=== PATIENT | male | born 1960 | race Caucasian/White ===

== ENCOUNTER 2017-04-29 20:35 | Inpatient (IN) | payer SELFPAY ==
[~2017-04-29] VITALS: Ht 172.7 cm; Wt 74.8 kg
[~2017-04-29 20:35] MED LIST: IBUPROFEN600 MG PO; NKM; NORCO 5-325 TA1 EACH ORAL
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
[2017-04-29 21:22] LABS: MEAN CORPUSCULAR HEMOGLOBIN 33.4 PG (27.0-31.0); MEAN CORPUSCULAR HGB CONC 34.2 G/DL (32.0-36.0); MEAN CORPUSCULAR VOLUME 98 FL (80-99); MEAN PLATELET VOLUME 5.7 FL (6.5-10.1); PLATELET COUNT 266 K/UL (150-450); RED BLOOD COUNT 4.17 M/UL (4.70-6.10); RED CELL DISTRIBUTION WIDTH 11.8 % (11.6-14.8); WHITE BLOOD COUNT 7.7 K/UL (4.8-10.8)
[2017-04-29 21:24] LABS: LYMPHOCYTES % (AUTO) 7.7 % (20.0-45.0); NEUTROPHILS % (AUTO) 89.3 % (45.0-75.0)
[2017-04-29 21:25] LABS: BASOPHILS % (AUTO) 0.4 % (0.0-2.0); MONOCYTES % (AUTO) 2.6 % (1.0-10.0)
[2017-04-29 21:51] LABS: TROPONIN I < 0.30 ng/mL (<=0.30)
[2017-04-29 21:54] LABS: ALANINE AMINOTRANSFERASE 20 U/L (3-41); ALBUMIN/GLOBULIN RATIO 4.8 (1.0-2.7); ANION GAP 14 (5-15); ASPARTATE AMINO TRANSFERASE 31 U/L (5-40); CALCIUM 9.2 mg/dL (8.6-10.2); CARBON DIOXIDE 25 mEQ/L (20-30); CHLORIDE 97 mEQ/L (98-107); GLOMERULAR FILTRATION RATE > 60 mL/min (>60); HEMOLYSIS 2; POTASSIUM 3.8 mEQ/L (3.4-4.9); SODIUM 136 mEQ/L (135-145)
[2017-04-29 22:00] VITALS: BP_SYST 132; BP_SYST 138; BP_SYST 139; BP_SYST 145; BP_DIAS 102; BP_DIAS 104; BP_DIAS 82; BP_DIAS 89
[2017-04-29 22:04] LABS: CKMB 2.9 ng/mL (< 6.7)
[2017-04-29] MEDS ORDERED: LORazepam Inj 2mg/ml 1ml IV ONE (22:15)
[2017-04-29] MEDS ORDERED: levETIRAcetam 500mg/NS100ml 100 ML IVPB ONE (22:15)
[2017-04-29 23:54] VITALS: BP 126/85
[2017-04-30] VITALS (7 sets, daily range): BP systolic 123–148; BP diastolic 77–89
[2017-04-30 01:08] LABS: APPEARANCE,URINE CLEAR; KETONES,URINE 3+ (NEGATIVE); LEUKOCYTE ESTERASE ,URINE NEGATIVE (NEGATIVE); NITRITE,URINE NEGATIVE (NEGATIVE); PH,URINE 6 (4.5-8.0); UROBILINOGEN,URINE NORMAL MG/DL (0.0-1.0)
[2017-04-30 01:10] LABS: PROTEIN,URINE NEGATIVE (NEGATIVE)
[2017-04-30] MEDS ORDERED: LORazepam Inj 2mg/ml 1ml IV PRN (07:00)
[2017-04-30] MEDS ORDERED: Morphine Sulfate 2mg/ml Inj IVP PRN (07:00)
[2017-04-30] MEDS ORDERED: Nitroglycerin Subl 0.4mg tab (Bottle Of 25) SL PRN (07:00)
[2017-04-30] MEDS ORDERED: DuoNeb 0.5-3(2.5)mg/3ml neb HHN PRN (07:00)
[2017-04-30] MEDS ORDERED: Miralax 17gm pkt ORAL PRN (07:00)
[2017-04-30] MEDS ORDERED: Mylanta II UD 30ml ORAL PRN (07:00)
--- NOTE | 2017-04-30 09:40 | Diagnostic Imaging Report ---
Indications: Technique: Spiral acquisitions obtained through the brain. Angled axial and coronal 5 x 5 mm slices were reconstructed. Total dose length product 1337 mGycm. CTDI vol(s) 7 to mGy. Dose reduction achieved using automated exposure control Comparison: None Findings: No acute hemorrhage or edema. No mass effect or midline shift. Normal size ventricles and extra-axial CSF spaces. Normal dodge-white differentiation. Intact calvarium. There is minimal ethmoid sinus disease. Impression: Minimal sinus disease Negative for acute intracranial bleed or mass effect This agrees with the preliminary interpretation provided overnight by [facility]erad[facility] service. The CT scanner at [facility] is accredited by the [employer] and the scans are performed using protocols designed to limit radiation exposure to as low as reasonably achievable to attain images of sufficient resolution adequate for diagnostic evaluation.
[2017-04-30] MEDS: Heparin 5000 units/ml inj SUBQ SCH ×2 (10:49→20:41)
--- NOTE | 2017-04-30 10:57 | Diagnostic Imaging Report ---
Indication: Shortness of breath Technique: One view of the chest Comparison: 07/07/2013 Findings: Lungs and pleural spaces are clear. Heart size is normal. No significant interim change Impression: No acute process This agrees with the preliminary interpretation provided by the emergency room physician
--- NOTE | 2017-04-30 12:43 | Neurology Progress Note ---
Objective Physical Exam Last Vital Signs Date Time Temp Pulse Resp B/P Pulse Ox O2 Delivery O2 Flow Rate FiO2 04/30/17 12:00 97.8 77 21 124/77 98 Room Air Laboratory Tests Test 04/29/17 21:10 04/30/17 01:00 White Blood Count 7.7 K/UL (4.8-10.8) Red Blood Count 4.17 M/UL (4.70-6.10) L Hemoglobin 13.9 G/DL (14.2-18.0) L Hematocrit 40.7 % (42.0-52.0) L Mean Corpuscular Volume 98 FL (80-99) Mean Corpuscular Hemoglobin 33.4 PG (27.0-31.0) H Mean Corpuscular Hemoglobin Concent 34.2 G/DL (32.0-36.0) Red Cell Distribution Width 11.8 % (11.6-14.8) Platelet Count 266 K/UL (150-450) Mean Platelet Volume 5.7 FL (6.5-10.1) L Neutrophils (%) (Auto) 89.3 % (45.0-75.0) H Lymphocytes (%) (Auto) 7.7 % (20.0-45.0) L Monocytes (%) (Auto) 2.6 % (1.0-10.0) Eosinophils (%) (Auto) 0.0 % (0.0-3.0) Basophils (%) (Auto) 0.4 % (0.0-2.0) Sodium Level 136 mEQ/L (135-145) Potassium Level 3.8 mEQ/L (3.4-4.9) Chloride Level 97 mEQ/L (98-107) L Carbon Dioxide Level 25 mEQ/L (20-30) Anion Gap 14 (5-15) Blood Urea Nitrogen 16 mg/dL (7-23) Creatinine 1.0 mg/dL (0.7-1.2) Estimat Glomerular Filtration Rate > 60 mL/min (>60) Glucose Level 118 mg/dL (74-106) H Calcium Level 9.2 mg/dL (8.6-10.2) Total Bilirubin 0.4 mg/dL (0.0-1.2) Aspartate Amino Transf (AST/SGOT) 31 U/L (5-40) Alanine Aminotransferase (ALT/SGPT) 20 U/L (3-41) Alkaline Phosphatase 40 U/L (40-129) Total Creatine Kinase 405 U/L (38-174) H Creatine Kinase MB 2.9 ng/mL (< 6.7) Creatine Kinase MB Relative Index 0.7 Troponin I < 0.30 ng/mL (<=0.30) Total Protein 7.0 g/dL (6.6-8.7) Albumin 5.8 g/dL (3.5-5.2) H Globulin 1.2 g/dL Albumin/Globulin Ratio 4.8 (1.0-2.7) H Serum Alcohol < 10 mg/dL Urine Color Yellow Urine Appearance Clear Urine pH 6 (4.5-8.0) Urine Specific [place] 1.015 (1.005-1.035) Urine Protein Negative (NEGATIVE) Urine Glucose (UA) Negative (NEGATIVE) Urine Ketones 3+ (NEGATIVE) H Urine Occult Blood Negative (NEGATIVE) Urine Nitrite Negative (NEGATIVE) Urine Bilirubin Negative (NEGATIVE) Urine Urobilinogen Normal MG/DL (0.0-1.0) Urine Leukocyte Esterase Negative (NEGATIVE) Urine Opiates Screen Negative (NEGATIVE) Urine Barbiturates Screen Negative (NEGATIVE) Phencyclidine (PCP) Screen Negative (NEGATIVE) Urine Amphetamines Screen Negative (NEGATIVE) Urine Benzodiazepines Screen Negative (NEGATIVE) Urine Cocaine Screen Negative (NEGATIVE) Urine Marijuana (THC) Screen Positive (NEGATIVE) H Impression/Recommendations Problems: (1) 

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
--- NOTE | 2017-04-30 14:33 | History & Physical ---
History and Physical History & Physicial Wilver Christie MD Apr 30, 2017 14:33
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
[2017-04-30] MEDS ORDERED: LORazepam 0.5mg tab ORAL SCH (21:00)
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
[2017-05-01] VITALS: BP 141/66
[2017-05-01 04:00] VITALS: BP 125/72
--- NOTE | 2017-05-01 07:43 | Pulmonology Progress Note ---
Assessment/Plan Assessment/Plan ASSESSMENT ACUTE ENCEPHALOPATHY due TO SEIZURE EPISODE -resolved POSSIBLE SYNCOPE COMPLEX PARTIAL SEIZURE DISORDER WITHOUT INTRACTABLE EPILEPSY PLAN OF CARE tele neuro follows CT head negative CXR negative Carotid essentially normal ECHO with pEF 55-60% and RVSP of 23 tele negative per PMD hold on EEG and MRI due to financial issues seizure precautions started on Keppra, continue no driving risk factors that could provoke seizure explained DVT prophylaxis possible dc today as per PMD case discussed and evaluated by supervising physician Subjective Allergies: Coded Allergies: No Known Allergies (Unverified , 04/29/17) Subjective denies chess pain, SOB, dizziness, blackout, Objective Last 24 Hour Vital Signs Date Time Temp Pulse Resp B/P Pulse Ox O2 Delivery O2 Flow Rate FiO2 05/01/17 04:00 67 05/01/17 04:00 97.3 65 20 125/72 97 Room Air 05/01/17 00:00 66 05/01/17 00:00 97.5 64 18 141/66 95 Room Air 04/30/17 20:00 97.9 74 18 130/89 100 Room Air 04/30/17 20:00 79 04/30/17 19:00 84 16 Room Air 21 04/30/17 19:00 Room Air 21 04/30/17 16:00 79 04/30/17 16:00 97.9 80 20 123/89 94 Room Air 04/30/17 12:00 97.8 77 21 124/77 98 Room Air 04/30/17 12:00 77 04/30/17 09:00 73 84 91 04/30/17 09:00 79 04/30/17 08:00 97.9 71 20 133/88 97 Room Air Intake and Output 04/30/17 05/01/17 19:00 07:00 Intake Total 400 ml 400 ml Output Total 400 ml Balance 400 ml 0 ml Intake Oral 400 ml 400 ml Output Urine Total 400 ml # Voids 1 General Appearance: WD/WN, no acute distress HEENT: normocephalic, atraumatic, anicteric, mucous membranes moist, PERRL Respiratory/Chest: lungs clear, no respiratory distress, no accessory muscle use Cardiovascular: normal peripheral pulses, normal rate, regular rhythm, no JVD Abdomen: normal bowel sounds, soft, non tender, non distended Genitourinary: normal external genitalia Extremities: no edema 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, no motor/sensory deficits, alert, oriented x 3, responsive, normal mood/affect Lymphatic: no neck adenopathy Musculoskeletal: normal muscle bulk Current Medications Medications (Trade) Dose Ordered Sig/Liza Route PRN Reason Start Time Stop Time Status Last Admin Dose Admin Acetaminophen (Tylenol) 650 mg Q4H PRN ORAL fever 04/30/17 07:00 05/30/17 06:59 Al Hydroxide/Mg Hydroxide (Mylanta II) 30 ml Q6H PRN ORAL dyspepsia 04/30/17 07:00 05/30/17 06:59 Albuterol/ Ipratropium (DuoNeb 0.5-3(2.5)mg/3ml) 3 ml Q4H PRN HHN Shortness of Breath 04/30/17 07:00 05/05/17 06:59 Clonidine HCl (Catapres) 0.1 mg Q4H PRN ORAL For High Blood Pressure 04/30/17 07:00 05/30/17 06:59 Dextrose (Dextrose 50%) STAT PRN IV Hypoglycemia 04/30/17 07:00 05/30/17 06:59 Heparin Sodium (Porcine) (Heparin 5000 units/ml) 5,000 units EVERY 12 HOURS SUBQ 04/30/17 09:00 05/30/17 08:59 04/30/17 20:41 Levetiracetam (Keppra) 500 mg Q12HR ORAL 04/30/17 13:00 05/30/17 12:59 04/30/17 20:38 Lorazepam (Ativan 2mg/ml 1ml) 0.5 mg Q4H PRN IV For Anxiety 04/30/17 07:00 05/07/17 06:59 04/30/17 12:44 Lorazepam (Ativan) 0.5 mg BEDTIME ORAL 04/30/17 21:00 05/07/17 20:59 04/30/17 20:38 Morphine Sulfate (Morphine Sulfate) 1 mg Q4H PRN IVP For Pain 7-10 04/30/17 07:00 05/07/17 06:59 Nitroglycerin (Ntg) 0.4 mg Q5M X 3 DOSES PRN SL Prn Chest Pain 04/30/17 07:00 05/30/17 06:59 Ondansetron HCl (Zofran) 4 mg Q6H PRN IVP Nausea & Vomiting 04/30/17 07:00 05/30/17 06:59 Polyethylene Glycol (Miralax) 17 gm HSPRN PRN ORAL Constipation 04/30/17 07:00 05/30/17 06:59 Temazepam (Restoril) 15 mg HSPRN PRN ORAL Insomnia 04/30/17 07:00 05/07/17 06:59 [facility] Ben[facility] NP May 01, 2017 07:43
[2017-05-01 08:14] VITALS: BP 145/87
[2017-05-01 08:28] LABS: BASOPHILS % (AUTO) 1.4 % (0.0-2.0); EOSINOPHILS % (AUTO) 2.1 % (0.0-3.0); LYMPHOCYTES % (AUTO) 29.8 % (20.0-45.0); MEAN CORPUSCULAR HEMOGLOBIN 34.3 PG (27.0-31.0); MEAN CORPUSCULAR HGB CONC 34.7 G/DL (32.0-36.0); MEAN CORPUSCULAR VOLUME 99 FL (80-99); MEAN PLATELET VOLUME 5.9 FL (6.5-10.1); MONOCYTES % (AUTO) 6.4 % (1.0-10.0); NEUTROPHILS % (AUTO) 60.4 % (45.0-75.0); PLATELET COUNT 227 K/UL (150-450); RED BLOOD COUNT 4.21 M/UL (4.70-6.10); WHITE BLOOD COUNT 5.3 K/UL (4.8-10.8)
[2017-05-01 08:57] LABS: ALANINE AMINOTRANSFERASE 18 U/L (3-41); ALBUMIN/GLOBULIN RATIO 2.3 (1.0-2.7); ANION GAP 10 (5-15); ASPARTATE AMINO TRANSFERASE 21 U/L (5-40); CALCIUM 9.1 mg/dL (8.6-10.2); CARBON DIOXIDE 27 mEQ/L (20-30); CHLORIDE 105 mEQ/L (98-107); CHOLESTEROL 248 mg/dL (< 200); CREATININE 1.1 mg/dL (0.7-1.2); GLOMERULAR FILTRATION RATE > 60 mL/min (>60); HEMOLYSIS 9; LDL CHOLESTEROL (CALC.) 151 mg/dL (60-99); POTASSIUM 4.5 mEQ/L (3.4-4.9); SODIUM 142 mEQ/L (135-145); TOTAL PROTEIN 6.3 g/dL (6.6-8.7)
[2017-05-01] MEDS: Heparin 5000 units/ml inj SUBQ SCH (09:18)
--- NOTE | 2017-05-01 10:19 | Cardiology Progress Note ---
Assessment/Plan Assessment/Plan [id number] no suggestion of syncope likely a neuro event uses marijuana and etoh Objective Last 24 Hour Vital Signs Date Time Temp Pulse Resp B/P Pulse Ox O2 Delivery O2 Flow Rate FiO2 05/01/17 08:14 97.2 67 19 145/87 96 Room Air 05/01/17 08:00 77 05/01/17 04:00 67 05/01/17 04:00 97.3 65 20 125/72 97 Room Air 05/01/17 00:00 66 05/01/17 00:00 97.5 64 18 141/66 95 Room Air 04/30/17 20:00 97.9 74 18 130/89 100 Room Air 04/30/17 20:00 79 04/30/17 19:00 84 16 Room Air 21 04/30/17 19:00 Room Air 21 04/30/17 16:00 79 04/30/17 16:00 97.9 80 20 123/89 94 Room Air 04/30/17 12:00 97.8 77 21 124/77 98 Room Air 04/30/17 12:00 77 Intake and Output 04/30/17 05/01/17 19:00 07:00 Intake Total 400 ml 400 ml Output Total 400 ml Balance 400 ml 0 ml Intake Oral 400 ml 400 ml Output Urine Total 400 ml # Voids 1 Laboratory Tests Test 05/01/17 07:29 White Blood Count 5.3 K/UL (4.8-10.8) Red Blood Count 4.21 M/UL (4.70-6.10) L Hemoglobin 14.5 G/DL (14.2-18.0) Hematocrit 41.7 % (42.0-52.0) L Mean Corpuscular Volume 99 FL (80-99) Mean Corpuscular Hemoglobin 34.3 PG (27.0-31.0) H Mean Corpuscular Hemoglobin Concent 34.7 G/DL (32.0-36.0) Red Cell Distribution Width 12.0 % (11.6-14.8) Platelet Count 227 K/UL (150-450) Mean Platelet Volume 5.9 FL (6.5-10.1) L Neutrophils (%) (Auto) 60.4 % (45.0-75.0) Lymphocytes (%) (Auto) 29.8 % (20.0-45.0) Monocytes (%) (Auto) 6.4 % (1.0-10.0) Eosinophils (%) (Auto) 2.1 % (0.0-3.0) Basophils (%) (Auto) 1.4 % (0.0-2.0) Prothrombin Time 10.0 SEC (9.30-11.50) Prothromb Time International Ratio 1.0 (0.9-1.1) Activated Partial Thromboplast Time 25 SEC (23-33) Sodium Level 142 mEQ/L (135-145) Potassium Level 4.5 mEQ/L (3.4-4.9) Chloride Level 105 mEQ/L (98-107) Carbon Dioxide Level 27 mEQ/L (20-30) Anion Gap 10 (5-15) Blood Urea Nitrogen 15 mg/dL (7-23) Creatinine 1.1 mg/dL (0.7-1.2) Estimat Glomerular Filtration Rate > 60 mL/min (>60) Glucose Level 104 mg/dL (74-106) Calcium Level 9.1 mg/dL (8.6-10.2) Total Bilirubin 0.7 mg/dL (0.0-1.2) Aspartate Amino Transf (AST/SGOT) 21 U/L (5-40) Alanine Aminotransferase (ALT/SGPT) 18 U/L (3-41) Alkaline Phosphatase 37 U/L (40-129) L Total Protein 6.3 g/dL (6.6-8.7) L Albumin 4.4 g/dL (3.5-5.2) Globulin 1.9 g/dL Albumin/Globulin Ratio 2.3 (1.0-2.7) Triglycerides Level 175 mg/dL (< 150) H Cholesterol Level 248 mg/dL (< 200) H LDL Cholesterol 151 mg/dL (60-99) H HDL Cholesterol 62 mg/dL (> 60) H Cholesterol/HDL Ratio 4.0 (3.3-4.4) Thyroid Stimulating Hormone (TSH) 1.350 uIU/mL (0.300-4.500) ZE RAINEY May 01, 2017 10:19
[2017-05-01] MEDS ORDERED: KEPPRA500 M3 ORAL (10:35)
[2017-05-01] MEDS ORDERED: ATIVAN0.5 MG ORAL (10:35)
[2017-05-01 11:55] VITALS: BP 126/87
--- NOTE | 2017-05-01 12:14 | Discharge Summary ---
Discharge Summary Hospital Course Date of Admission Apr 29, 2017 at 23:15 Date of Discharge Admitting Diagnosis SYNCOPE HPI Agustin Lunsford is a 56 year old male who was admitted on Apr 29, 2017 at 23:15 for Syncope Hospital Course job # [id number] Discharge Discharge Disposition Patient was discharged to Home (01) Discharge Diagnoses: Wilver Christie MD May 01, 2017 12:14
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
--- NOTE | 2017-05-01 23:00 | Discharge Summary ---
DATE OF ADMISSION: 04/29/2017 DATE OF DISCHARGE: 05/01/2017 HOSPITAL COURSE: This is a 56-year-old very delightful gentleman, denies any past medical history and past surgical history, who presented to the hospital complaining about altered mental status. Shortly after initial evaluation, the patient was admitted to the hospital with a complex partial seizure disorder. Throughout the hospital course, the patient was followed Dr. Krish Patricia from Neurology and Dr. Luna from Critical Care. The patient's status gradually improved and subsequently was discharged home today to be followed by as outpatient within one week. FOLLOWUP: The patient will follow up with EEG as well as an MRI of the brain as an outpatient. FINAL DIAGNOSIS: Complex partial seizure disorder. MEDICATION ON DISCHARGE: Continue discharge medication list. ACTIVITY: As tolerated. DIET: Regular diet as well as the patient to follow up my office within one week. I advised the patient as well as the no driving and compliance with medication and try to avoid alcoholic substance. Wilver Christie M.D. DR: KEVIN JOB#: [id number] CC:
--- NOTE | 2017-05-02 17:16 | Cardiology Report ---
APPROVED REPORT EKG Measurement Heart [id number] Normal sinus rhythm Normal ECG
--- NOTE | 2017-05-02 17:49 | Diagnostic Imaging Report ---
APPROVED REPORT CPT Code: 58604 Vascular Symptoms CVA/TIA: Doppler Spectral Velocity Analysis RightLeft RIGHT SIDE: CCA - Imaging reveals no significant plaque within the extracranial carotid arteries. The Doppler spectral flow analysis is within normal limits throughout the extracranial carotid arteries. VERTEBRAL - The vertebral artery is within normal limits. carotid arteries. ECA - Imaging reveals irregular plaque in the external carotid artery. The Doppler signal indicates the degree of stenosis is minimal (5%) in the external carotid artery. VERTEBRAL - The vertebral artery is within normal limits.
--- NOTE | 2017-05-03 11:56 | Cardiology Report ---
APPROVED REPORT EXAM: Two-dimensional and M-mode echocardiogram with Doppler and color Doppler. INDICATION LV function M-Mode DIMENSIONS IVSd1.1 (0.7-1.1cm)Left Atrium (MM)3.2 (1.6-4.0cm) LVDd1.4 (3.5-5.6cm)Aortic Root3.2 (2.0-3.7cm) PWd4.1 (0.7-1.1cm)Aortic Cusp Exc.2.1 (1.5-2.0cm) LVDs2.9 (2.5-4.0cm) PWs1.9 cm Normal left ventricular chamber size, systolic function and wall motion. Left ventricular ejection fraction estimated to be 55-60 %. Mild left ventricular hypertrophy by 2-D. Anterior Echo-free space, may be due to pericardial fat or effusion. All other cardiac chamber sizes are within normal limits. Focal aortic valve sclerosis with adequate cusp excursion. Thickened mitral valve leaflets with normal excursion. Mitral annulus and aortic root calcification. Pulmonic valve not well visualized. Normal tricuspid valve structure. IVC at normal size with physiologic collapse. A color flow and spectral Doppler study was performed and revealed: No aortic regurgitation. Trace mitral regurgitation. Mitral inflow indicates normal left ventricular diastolic function. Trace tricuspid regurgitation. Tricuspid systolic velocities suggests peak right ventricular systolic pressure of 23 mmHg.
== END 2017-05-01 13:00 | disposition home or self-care (01) | DRG 101 ==
LOC: EDBD 20:35 → EMR 21:10 → 2E 23:15 → EDBEDREQ 23:51
DX: G40.209 Localization-related (focal) (partial) symptomatic epilepsy and epileptic syndromes with complex partial seizures, not intractable, without status epilepticus (principal); F41.9 Anxiety disorder, unspecified; F12.90 Cannabis use, unspecified, uncomplicated
CPT/HCPCS: 36415; 70450; 71010; 80053; 80061; 80299; 80300; 80329; 81003; 82550; 82553; 84443; 84484; 85025; 85610; 85730; 93005; 93306; 93880; 94664